=== PATIENT | female | born 1940 | race Asian ===

== ENCOUNTER 2019-06-23 19:48 | Emergency (ER) | payer MEDICARE ==
[2019-06-23] MEDS ORDERED: Morphine 4 MG/ML VIAL ONE (21:02)
--- NOTE | 2019-06-23 21:42 | CT ---
NONCONTRAST CT LUMBAR SPINE: 06/23/19 HISTORY: Fall on back today. Lower back pain. FINDINGS: There is a compression fracture involving the L1 vertebral body which likely represents a more acute compression fracture. No significant retropulsion of fracture fragments is appreciated. There is appr oximately 10 to 15% loss of vertebral body height. No additional fracture is seen, and there is no ev idence of a subluxation involving the lumbar spine. T12-L1 level: There is mild disc osteophyte complex and facet degenerative changes. There is slight f lattening of the ventral aspect of the subarachnoid space. Neural foramina are patent. L1-2 level: There is a mild disc osteophyte complex with facet hypertrophic changes. There is mild bi lateral neural foraminal narrowing with mild effacement of the ventral aspect of the thecal sac. L2-3 level: There is mild disc osteophyte complex present. There is mild to moderate right and mild l eft sided neural foraminal narrowing. No significant narrowing of the central spinal canal is present . L3-4 level: There is a mild broad based disc osteophyte complex and facet hypertrophic changes. There is mild bilateral neural foraminal narrowing greater on the right with mild effacement of the ventra l aspect of the thecal sac. L4-5 level: There is a mild disc osteophyte complex and facet hypertrophic changes. Findings result i n moderate bilateral neural foraminal narrowing greater on the left. L5-S1 level: There is a broad based disc osteophyte complex with vacuum phenomenon seen in the inter vertebral disc. Findings do not result in significant narrowing of the central spinal canal. There i s mild right and moderate left sided neural foraminal narrowing. Vascular calcifications are seen in the abdominal aorta and involving the iliac arteries. There is colonic diverticulosis present. Osteopenia is noted. IMPRESSION: 1. L1 vertebral body compression fracture, and this likely represents a more recent fracture. 2. Osteopenia and degenerative changes in the lumbar spine. POS: RAQUEL
[2019-06-23] MEDS ORDERED: HYDROcodone/Acetaminophen 10/325 mg Tablet ONE (22:51)
--- NOTE | 2019-06-23 23:46 | RAD ---
AP PELVIS RADIOGRAPH: 06/23/19 HISTORY: Injury after a fall. COMPARISON: None available. FINDINGS: No fracture or dislocation is seen. There is a sclerotic density in the right superior acetabular reg ion of the right iliac bone which has characteristics most suggestive of a bone island. Degenerative changes seen in the lower lumbar spine. There are vascular calcifications in the abdominal aorta and iliac arteries. IMPRESSION: Osteopenia without evidence of an acute osseous abnormality. POS: OFF
== END 2019-06-23 23:20 | disposition home or self-care (01) ==
LOC: ERS 19:48
DX: S32.019A Unspecified fracture of first lumbar vertebra, initial encounter for closed fracture (principal); E78.5 Hyperlipidemia, unspecified; I10 Essential (primary) hypertension; W18.30XA Fall on same level, unspecified, initial encounter
CPT/HCPCS: 72131; 72170; 96374; J2270

== ENCOUNTER 2019-06-25 21:21 | Emergency (ER) | payer MEDICARE ==
[2019-06-25] MEDS ORDERED: Morphine 4 MG/ML VIAL ONE (22:25)
[2019-06-25] MEDS ORDERED: Ketorolac Tromethamine 30 MG/ML VIAL ONE (22:25)
== END 2019-06-26 01:26 ==
LOC: ERS 21:21
DX: S32.019A Unspecified fracture of first lumbar vertebra, initial encounter for closed fracture (principal); I10 Essential (primary) hypertension; E78.5 Hyperlipidemia, unspecified; Z79.891 Long term (current) use of opiate analgesic; W19.XXXA Unspecified fall, initial encounter
CPT/HCPCS: 96361; 96374; 96375; J1885; J2270